=== PATIENT | female | born 1965 | race Caucasian/White ===

== ENCOUNTER 2017-08-17 19:04 | Emergency (ER) | payer OTHER ==
[2017-08-17 19:31] VITALS: BP 153/90; PULSE 62; TEMP 98.7; BMI 36.6
--- NOTE | 2017-08-17 20:08 | PDOC ---
History of Present Illness - General History Source: Patient Exam Limitations: No Limitations - History of Present Illness Initial Comments: 08/17/17 20:27 The patient is a 51 year old female, with a significant past medical history of prediabetes and borderline hypertension, who presents to the emergency department complaining of a headache for approximately 1.5 week. The patient reports the headache is localized to the back of her head and describes it as a nonradiating pressure. She denies any associated head trauma, changes in vision , LOC, dizziness, lightheadedness, weakness, changes in speech, numbness, tingling, or changes in gait. Patient reports she has been taking Aspirin, Aleeve, and Advil with mild relief of headache. Today patient reports nausea, but denies any abdominal pain, vomiting, diarrhea, or constipation. Patient reports presenting to the ED out of concern that her headache might be related to a tick bite on her back and her left lower abdomen about a month ago, which she removed on her own. She denies any rash, joint pain, fever, chills, cough, or sore throat. She denies any chest pain, shortness of breath, diaphoresis, or palpitations. She denies any recent travel or sick contacts. Allergies: NKDA Past Surgical History: None reported. Social History: Non smoker. No ETOH or recreational drug use. <Mirna Paulino - Last Filed: 08/17/17 21:19> <Nelly Denny - Last Filed: 08/18/17 01:43> - General Chief Complaint: Headache Stated Complaint: HEADACHE, TIC BITE Time Seen by Provider: 08/17/17 19:15 Past History <Mirna Paulino - Last Filed: 08/17/17 21:19> - Past Medical History COPD: No Diabetes: Yes (PRE) HTN: Yes - Suicide/Smoking/Psychosocial Hx Smoking History: Never smoked Have you smoked in the past 12 months: No Information on smoking cessation initiated: No Hx Alcohol Use: No Drug/Substance Use Hx: No Substance Use Type: None <Nelly Denny - Last Filed: 08/18/17 01:43> - Past Medical History Allergies/Adverse Reactions: Allergies Allergy/AdvReac Type Severity Reaction Status Date / Time No Known Allergies Allergy Verified 06/06/16 09:17 Home Medications: Ambulatory Orders Meclizine HCl [Antivert -] 25 mg PO TID #30 tablet 06/06/16 Review of Systems - Review of Systems Able to Perform ROS?: Yes Comments:: 08/17/17 20:27 CONSTITUTIONAL: Absent: fever, no chills, no fatigue EYES: Absent: visual changes ENT: Absent: ear pain, no sore throat CARDIOVASCULAR: Absent: chest pain, no palpitations RESPIRATORY: Absent: cough, no SOB GI: Present: nausea Absent: abdominal pain, no vomiting, no constipation, no diarrhea GENITOURINARY: Absent: dysuria, no frequency, no hematuria MUSCULOSKELETAL: Absent: back pain, no arthralgia, no myalgia SKIN: Absent: rash NEURO: Present: headache Absent: focal weakness or paresthesias, dizziness, unsteady gait, seizure, mental status changes, bladder or bowel incontinence <Mirna Paulino - Last Filed: 08/17/17 21:19> *Physical Exam - Vital Signs Last Vital Signs Temp Pulse Resp BP Pulse Ox 98.7 F 62 20 153/90 97 08/17/17 19:05 08/17/17 19:05 08/17/17 19:05 08/17/17 19:05 08/17/17 19:05 - Physical Exam Comments: 08/17/17 20:28 GENERAL: The patient is awake, alert, and fully oriented, in no acute distress. HEAD: Normal with no signs of trauma. EYES: 1 mm pupils but equal, round and reactive to light, extraocular movements intact, sclera anicteric, conjunctiva clear with no pallor. ENT: Ears normal, nares patent, oropharynx clear without exudates. Moist mucous membranes. NECK: Normal range of motion, supple without lymphadenopathy, JVD, or masses. LUNGS: Breath sounds equal, clear to auscultation bilaterally. No wheeze/ crackles. HEART: Regular rate and rhythm, normal S1 and S2 without murmur or rub. ABDOMEN: Soft/nontender/nondistended. BS wnl. No guarding or rebound. No palpable masses. No hepatosplenomegaly. EXTREMITIES: Normal range of motion, no edema. No clubbing or cyanosis. No cords, erythema, or tenderness. NEUROLOGICAL: Cranial nerves II through XII grossly intact. Normal speech, normal gait. PSYCH: Normal mood, normal affect. SKIN: Warm, Dry, normal turgor, no rashes or lesions noted. <Mirna Paulino - Last Filed: 08/17/17 21:19> - Vital Signs Last Vital Signs Temp Pulse Resp BP Pulse Ox 98.7 F 62 20 153/90 97 08/17/17 19:05 08/17/17 19:05 08/17/17 19:05 08/17/17 19:05 08/17/17 19:05 <Nelly Denny - Last Filed: 08/18/17 01:43> ED Treatment Course - RADIOLOGY Radiograph Interpretation: 08/17/17 21:19 EXAM: Head CT INTERPRETED BY: Dr. Orr REVIEWED BY: Dr. Denny IMPRESSION: Minimal volume loss without evidence of acute intracranial pathology. No mass lesion or gross acute infarct is identified. <Mirna Paulino - Last Filed: 08/17/17 21:19> Progress Note - Progress Note Progress Note: Documentation has been prepared under my direction and personally reviewed by me in its entirety. I attest that this documented accurately reflects all work, treatment, procedures and medical decision making performed by me. <Nelly Denny - Last Filed: 08/18/17 01:43> Medical Decision Making - Medical Decision Making As noted above, this 51-year-old woman presents with approximately one-week history of occipital headache, apparently different from previous headaches that she has experienced. No previous history of recurrent headaches or migraine. Patient relates temporary relief of headache after ibuprofen/naproxen /aspirin with rapid recurrence. Today, she noted nausea. There has been no other associated neurologic symptoms. Of note, patient removed a tick from her upper back approximately one month ago. Patient presented photo of the insect: It did not appear to be engorged. Exam as noted. Patient had neither neurologic deficit or evidence of rash. Although the patient has no associated neurologic deficits, because she has experienced nausea today, will obtain noncontrast head CT to evaluate for mass/ bleed or other acute intracranial pathology. Also,IgM/IgG titers will be sent. Noncontrast head CT shows no evidence of acute intracranial pathology. Results discussed with the patient. Nausea could likely be related to the multiple doses of nonsteroidal anti-inflammatory/aspirin that she has taken for her headache. She should use acetaminophen over the next several days if she needs analgesia. Meanwhile, the patient has a scheduled appointment with her general medical doctor next week. Lyme titers will be checked and she will be contacted regarding results over the next week. She should return to the ER if she has worsening of her symptoms <Nelly Denny - Last Filed: 08/18/17 01:43> *DC/Admit/Observation/Transfer - Attestations Scribe Attestion: 08/17/17 20:28 Documentation prepared by Mirna Paulino, acting as medical assistant instructor for Nelly Denny MD. <Mirna Paulino - Last Filed: 08/17/17 21:19> <Nelly Denny - Last Filed: 08/18/17 01:43> Diagnosis at time of Disposition: Headache Qualifiers: Headache type: unspecified Headache chronicity pattern: acute headache Intractability: not intractable Qualified Code(s): R51 - Headache Tick bite Qualifiers: Encounter type: initial encounter Qualified Code(s): W57.XXXA - Bitten or stung by nonvenomous insect and other nonvenomous arthropods, initial encounter - Discharge Dispostion Disposition: HOME Condition at time of disposition: Improved - Patient Instructions Printed Discharge Instructions: DI for Headache Additional Instructions: Tylenol as needed for headache Avoid ibuprofen/Aleve if you have nausea or abdominal discomfort Follow-up with your doctor next week as scheduled Return to ER if you have severe headache/vomiting
[2017-08-20 14:13] LABS: IgG P18 Absent (.); IgG P23 Absent (.); IgG P28 Absent (.); IgG P30 Absent (.); IgG P39 Absent (.); IgG P41 Absent (.); IgG P45 Absent (.); IgG P58 Absent (.); IgG P66 Absent (.); IgG P93 Absent (.); IgM P23 Absent (.); IgM P39 Absent (.); IgM P41 Absent (.); LYME IGM WB INTERPRE Negative (.)
== END 2017-08-17 21:36 | disposition home or self-care (01) ==
LOC: FER 19:04
DX: R51 Headache (principal); W57.XXXA Bitten or stung by nonvenomous insect and other nonvenomous arthropods, initial encounter; Y93.89 Activity, other specified; Y92.9 Unspecified place or not applicable; R73.03 Prediabetes
CPT/HCPCS: 36415; 70450-TC; 86618; 99282-25